=== PATIENT | male | born 1985 | race Caucasian/White ===

== ENCOUNTER 2019-03-07 13:10 | Emergency (ER) | payer OTHER, MEDICAID, SELFPAY ==
[2019-03-07 13:19] VITALS: PULSE 62; RESP 17; TEMP 37; O2SAT 100; BMI 19.8
[2019-03-07 13:20] VITALS: BP 119/83; PULSE 62; RESP 17; TEMP 37; O2SAT 100
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
[2019-03-07] MEDS: TET,DIPH,PERTUSS(ACELL),VAC/PF 0.5 ML SYRINGE IM (14:15)
[2019-03-07 14:35] VITALS: BP 131/93; PULSE 68; RESP 15; O2SAT 97
== END 2019-03-07 14:36 | disposition home or self-care (01) ==
PROVIDERS: Emergency Provider Emergency Medicine
DX: S92.412A Displaced fracture of proximal phalanx of left great toe, initial encounter for closed fracture (principal); V19.3XXA Pedal cyclist (driver) (passenger) injured in unspecified nontraffic accident, initial encounter; Z23 Encounter for immunization
CPT/HCPCS: 29550; 73630; 90471; 99282; 99283; 90715

== ENCOUNTER 2019-03-09 12:51 | Day surgery (SDC) | payer OTHER, MEDICAID, SELFPAY ==
[2019-03-09] VITALS (14 sets, daily range): BP systolic 93–120; BP diastolic 56–78; PULSE 54–81; RESP 9–22; TEMP 36.1–36.5; O2SAT 95–100; BMI 19.8
--- NOTE | 2019-03-09 | DI.RAD.S_ITS ---
PROCEDURE: XR TOE LT MIN 2V INDICATIONS: LEFT TOE PERC PIN/INTRA-OPERATIVE TECHNIQUE: 2 intraoperative fluoroscopic views of the left great toe(s) acquired. COMPARISON: [facility], , XR FOOT LT MIN 3V, 03/07/2019, 13:31. FINDINGS: Bones: Intraoperative fluoroscopic images of the left foot demonstrate interval percutaneous pin fixation of known comminuted intra-articular fracture involving the left great toe proximal phalanx. No acute hardware complication. Postoperative alignment appears anatomic. No suspicious bony lesions. Soft tissues: No suspicious soft tissue densities. IMPRESSION: Status post interval percutaneous pin fixation of comminuted, intra-articular fracture of the left great toe proximal phalanx. The Dictated by: Hilton Molina M.D. on 03/09/2019 at 16:47 Approved by: Hilton Molina M.D. on 03/09/2019 at 16:49
[2019-03-09] MEDS: LACTATED RINGERS 1,000 ML 42 ML IV (13:30)
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
--- NOTE | 2019-03-09 14:54 | PM.PREOP ---
Pre-operative Note Interval Note History & Physical reviewed/Exam performed by Physician: Yes Changes to H&P: No
[2019-03-09] MEDS: CEFAZOLIN 2 GM/100 ML FROZ.PIGGY IV (15:32)
--- NOTE | 2019-03-09 15:49 | SUR.OPER ---
Supine on padded OR bed, head on pillow, arms secured on padded arm boards at <90 degrees abduction, left leg controlled by surgeon, right leg secured to table with tape over blanket, , safety belt at pelvis.
[2019-03-09] MEDS: BUPIVACAINE 0.5% W/ EPI (PF) VIAL 30 ML INJ (15:53)
[2019-03-09] MEDS: fentaNYL 100 MCG/2 ML INJ 50 MCG IV ×2 (16:25→16:38)
--- NOTE | 2019-03-09 16:27 | P.OP_ITS ---
Operative Date/Time/Diagnoses Date of procedure: 03/09/19 Time of procedure: 16:23 Pre-op diagnosis: Closed left great toe intra-articular proximal phalanx fracture Post-op diagnosis: same Procedure & Clinicians Procedure: Percutaneous pin fixation of left great toe proximal phalanx fracture Same procedure as scheduled: Yes Indications: 33-year-old male with a displaced intra-articular fracture of the proximal phalanx of the left great toe. Was felt that he would benefit from reduction and pin fixation. Risks and benefits of surgery discussed and appropriate consent obtained. Surgeon: Jonny Gentile Click Yes if Unassisted: Yes Anesthesia Type: General Operative Notes Findings: None Closure Type: not applicable Specimen(s): none sent Prosthetic devices, grafts, tissues, transplants, or devices: 0.054 K-wires Estimated Blood Loss (mL): 1 Procedure in detail: Patient was brought to the operating room and intubated on the table. Time-out was performed. Attention was turned towards the well- marked left great toe. Preoperative antibiotics were given. The leg was prepped and draped in the standard sterile fashion. Marcaine was used for a digital block. We partially reduce the fracture with traction but not adequately enough. I then used a towel clip to manipulate the fragments and we had a good reduction of the fracture. Two K-wires were placed from lateral to medial in the major fragment from distal to proximal. One more K-wire was placed distal to proximal along the medial fragment. Final x-rays were taken which showed good anatomic reduction of the joint and good positioning of the fracture fragments with good placement of the wires in the bone. The foot was cleaned. The K-wires were bent. Caps were placed on the K-wires. Sterile dressing was placed. He was then extubated brought to recovery with no complications. Complications: none Condition: stable Disposition: PACU Plan for aftercare: He may weight bear as tolerated in a rigid sole postop shoe. Keep dressing intact. Followup in 1/2 weeks.
[2019-03-09] MEDS: HYDROMORPHONE 2 MG INJ 0.25 MG IV ×4 (16:30→16:55)
[2019-03-09] MEDS: OXYCODONE/ACETAMINOPHEN 5/325 TABLET 1 TAB PO ×2 (16:56→17:46)
[2019-03-09] MEDS: hydrOXYzine 50 MG/ML INJ 25 MG IM (17:22)
== END 2019-03-09 18:02 | disposition home or self-care (01) ==
PROVIDERS: Visit Provider Orthopaedic Surgery
PROC: (CPT 28496; principal; 2019-03-09 14:15)
DX: S92.412A Displaced fracture of proximal phalanx of left great toe, initial encounter for closed fracture (principal); F17.210 Nicotine dependence, cigarettes, uncomplicated; W18.01XA Striking against sports equipment with subsequent fall, initial encounter; Y93.55 Activity, bike riding
CPT/HCPCS: 28496; 73660; 76000; J0690; J1100; J1170; J2405; J2704; J3010; J3410